=== PATIENT | female | born 1990 | race Caucasian/White ===

== ENCOUNTER → 2018-10-25 | Outpatient (CLI) | payer OTHER | LOC: FIMAGING 20:54 | PROVIDERS: ATTEND Orthopaedic Surgery Sports Medicine | DX: S82.62XA Displaced fracture of lateral malleolus of left fibula, initial encounter for closed fracture (principal); Y93.9 Activity, unspecified ==

== ENCOUNTER → 2018-10-25 | Outpatient (CLI) | payer OTHER | LOC: FIMAGING 16:24 | PROVIDERS: ATTEND Family Medicine | DX: S82.432A Displaced oblique fracture of shaft of left fibula, initial encounter for closed fracture (principal); W17.89XA Other fall from one level to another, initial encounter; Y93.31 Activity, mountain climbing, rock climbing and wall climbing ==

== ENCOUNTER 2018-11-02 15:28 | Emergency (ER) | payer OTHER ==
--- NOTE | 2018-11-02 15:53 | EDPHY ---
H & P Stated Complaint: 10/27 fx l ankle bouldering now with +dvt Time Seen by Provider: 11/02/18 15:39 HPI/ROS: CHIEF COMPLAINT: Known DVT HISTORY OF PRESENT ILLNESS: 28-year-old female sustained fracture to her distal fibula on October 25 when she was bouldering, rolled her ankle. She has been followed at [facility], she returned to the [facility] urgent care today for complaints of calf pain, was sent to the hospital for an outpatient ultrasound which is positive for DVT and was told to come to the ER for evaluation. She had a cast which was in place and was cut off at the orthopedic urgent care. She is complaining of calf pain for the past 2 days. Denies paresthesia. Denies prior history of DVT or PE. She denies: Chest pain, dyspnea, headache, syncope, near syncope, abdominal pain REVIEW OF SYSTEMS: 10 systems reviewed and negative with the exception of the elements mentioned in the history of present illness PAST MEDICAL & SURGICAL HISTORY: No coagulopathic disorder history. Positive oral contraceptives. SOCIAL HISTORY: Nonsmoker. . PHYSICAL EXAM (Prior to examination, patient consented to physical exam, hands were washed and my usual and customary physical exam procedures followed) 1) GENERAL: Well-developed, well-nourished, alert and oriented. Appears to be in no acute distress. 2) HEAD: Normocephalic, atraumatic 3) HEENT: Pupils equal, round, reactive to light bilaterally. Sclera anicteric. 4) NECK: Full range of motion, no meningeal signs. 5) LUNGS: Clear auscultation bilaterally, no wheezes, no rhonchi, no retractions. 6) HEART: Regular rate and rhythm, no murmur, no heave, no gallop. 7) ABDOMEN: No guarding, no rebound, no focal tenderness, negative McBurney's, negative Glez's, negative Rovsing's, negative peritoneal sign, 8) MUSCULOSKELETAL: Left lower extremity: Ecchymosis to the ankle. Soft compartments throughout. DP PT pulses present and brisk. 9) BACK: No CVA tenderness, no midline vertebral tenderness, no fluctuance, no step-off, no obvious trauma, no visual or palpable abnormality. 10) SKIN: No rash, no petechiae. 11) Psychiatric: Patient is oriented X 3, there is no agitation. DIFFERENTIAL DIAGNOSIS: In no particular order including but not limited to DVT , cellulitis, compartment syndrome, phlegmasia cerulea/alba dolens. - Personal History LMP (Females 10-55): 8-14 Days Ago Current Tetanus Diphtheria and Acellular Pertussis (TDAP): Yes - Medical/Surgical History Hx Asthma: No Hx Chronic Respiratory Disease: No Hx Diabetes: No Hx Cardiac Disease: No Hx Renal Disease: No Hx Cirrhosis: No Hx Alcoholism: No Hx HIV/AIDS: No Hx Splenectomy or Spleen Trauma: No Other PMH: fx l ankle Constitutional: Initial Vital Signs Temperature (C) 36.4 C 11/02/18 15:32 Heart Rate 72 11/02/18 15:32 Respiratory Rate 17 11/02/18 15:32 Blood Pressure 102/60 11/02/18 15:32 O2 Sat (%) 97 11/02/18 15:32 O2 Delivery Mode Room Air Allergies/Adverse Reactions: No Known Allergies Allergy (Unverified 11/02/18 15:31) Home Medications: Medication Instructions Recorded LEVONORGESTREL-ETH ESTRA 11/02/18 Rivaroxaban [Xarelto 15mg (*)] 15 mg PO BID #42 tab 11/02/18 Medical Decision Making - Diagnostics Imaging Results: Images reviewed myself ED Course/Re-evaluation: Patient is neurovascular intact no evidence of ischemia or phlegmasia cerulea/ alba dolens. Plan will be outpatient management. I consulted with Dr. Crow Abbott on this patient and will obtain baseline laboratory studies including PT PTT, chemistry, and liver function studies. She does not have a primary care provider and I provided her primary care provider recommend further follow- up with primary care. I also consulted with orthopedic ABDOUL Guy 4:10 p.m. Who evaluated the patient earlier today and sent the patient for outpatient DVT and because the patient's cast was cut off at her office. Because of her DVT and because the patient has a [place] boot at home, ABDOUL Guy recommended that the patient could continue to use her boot but must remain nonweightbearing ankle keep it on at all times. I discussed this with the patient she is agreeable with this. 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 Recommend return to the ER if she develops chest pain, syncope, headache abdominal pain, nausea vomiting, rash, or any other symptoms that concern her. Discussed the indications, risks and benefits of anticoagulant therapy. Informed the patient that I think the benefits outweigh the risks. Given her my usual customary anticoagulant precautions instructions. - Data Points Laboratory Results: Laboratory Results 11/02/18 16:10 11/02/18 16:10 Medications Given: Discontinued Medications Rivaroxaban (Xarelto) 15 mg PO EDNOW ONE Stop: 11/02/18 16:01 Last Admin: 11/02/18 16:25 Dose: 15 mg Departure - Departure Disposition: Home, Routine, Self-Care Clinical Impression: Left leg DVT Condition: Good Instructions: Deep Vein Thrombosis (ED) Referrals: Fermín Castellanos MD [Medical Doctor] - 2-3 days, call for appt. Prescriptions: Rivaroxaban [Xarelto 15mg (*)] 15 mg PO BID #42 tab
[2018-11-02] MEDS ORDERED: RIVAROXABAN 15 MG TAB PO ONE (16:00)
[2018-11-02 16:31] VITALS: BP 105/69
[2018-11-02 16:43] LABS: INR 1.09 (0.83-1.16); PROTIME(PATIENT) 14.3 SEC (12.0-15.0)
[2018-11-02 17:18] LABS: PLATELET COUNT 185 10^3/uL (150-400)
== END 2018-11-02 16:30 | disposition home or self-care (01) ==
LOC: EDSTATUS 15:28
DX: I82.492 Acute embolism and thrombosis of other specified deep vein of left lower extremity (principal)

== ENCOUNTER → 2018-12-06 | Outpatient (CLI) | payer OTHER | LOC: FIMAGING 15:48 | PROVIDERS: ATTEND Registered Nurse | DX: D25.1 Intramural leiomyoma of uterus (principal) ==